=== PATIENT | male | born 1970 | race Hispanic/Latino ===

== ENCOUNTER 2016-09-29 13:00 | Emergency (ER) | payer SELFPAY ==
[~2016-09-29] VITALS: Ht 172.7 cm; Wt 83.4 kg
[~2016-09-29 13:00] MED LIST: 1/2 NS IV; ACETAMIN500 M1 PO; DILAUDID2 MG/ML IV; LORTAB 7.5 PO; NO; PIPER/TAZOBA1 IN1 IM; PROTONIX40 M1 IV; VIA IV; ZOFRAN IV; [UNRECOGNIZED DRUG - OTHER] IV
[2016-09-29] MEDS ORDERED: TAMSULOSIN0.4 MG PO (13:25)
[2016-09-29 13:50] LABS: HEMATOCRIT 48.2 % (39.0-50.0); HEMOGLOBIN 16.3 g/dl (14.0-18.0); IMMATURE GRANULOCYTES 2.3 % (0.0-1.0); MEAN CELL VOLUME 80.1 fL CALC (80.0-100.0); MEAN CORPUSCULAR HGB 27.1 pG CALC (26.0-32.0); MEAN CORPUSCULAR HGB CONC 33.8 g/L CALC (32.0-36.0); NEUT# 10.17 thou/uL (1.82-7.42); RED BLOOD COUNT 6.02 mill/uL (4.70-6.10); RED CELL DISTRI WIDTH 13.2 % (11.5-15.5)
[2016-09-29 14:07] LABS: ALBUMIN 4.9 g/dL (3.2-5.0); ALKALINE PHOSPHATASE 134 u/l (38-126); AMYLASE 47 u/l (30-110); ANION GAP 18 (6-22 (CALC)); BILIRUBIN, TOTAL 0.7 mg/dL (0.0-1.4); BUN 14 mg/dL (9-20); BUN/CREATININE RATIO 23 (12-20 (CALC)); CALCIUM 9.7 mg/dL (8.4-10.2); CARBON DIOXIDE 24 mmol/l (22-30); CHLORIDE 107 mmol/l (95-108); CREATININE 0.6 mg/dL (0.7-1.3); GFR > 60 ML/MIN (>=60 (CALC)); GFR FOR AFR.AMER. > 60 ML/MIN (>=60 (CALC)); GLUCOSE 164 mg/dL (75-110); LIPASE 87 u/l (23-300); POTASSIUM 4.2 mmol/l (3.5-5.1); SGOT/AST 38 u/l (17-59); SGPT/ALT 88 u/l (21-72); SODIUM 145 mmol/l (137-146)
[2016-09-29 15:24] LABS: URINE BILIRUBIN - DIPSTICK NEGATIVE (NEGATIVE); URINE BLOOD DIPSTICK NEGATIVE (NEGATIVE); URINE CLARITY CLEAR; URINE COLOR YELLOW; URINE GLUCOSE - DIPSTICK NEGATIVE (NEGATIVE); URINE KETONE NEGATIVE (NEGATIVE); URINE LEUK ESTERASE NEGATIVE (NEGATIVE); URINE NITRITE - DIPSTICK NEGATIVE (Negative); URINE PH 5.5 (4.5-8.0); URINE PROTEIN - DIPSTICK 100 mg/dL (NEG-TRACE); URINE SPECIFIC GRAVITY >=1.030; URINE UROBILINOGEN - DIPSTICK 0.2 E.U./dL (0.2)
[2016-09-29 15:34] LABS: URINE MUCUS FEW hpf (NONE-FEW); URINE SQUAMOUS EPITHELIAL CELL FEW EPI/hpf (0-FEW)
[2016-09-29] MEDS ORDERED: ANTIVERT PO (16:02)
[2016-09-29] MEDS ORDERED: MEDDOSEPAK PO (16:02)
[2016-09-29] MEDS ORDERED: ZOFRAN ODT4 MG PO (16:02)
[2016-09-29 16:19] VITALS: BP 125/76
== END 2016-09-29 16:30 | disposition home or self-care (01) | DRG 149 ==
LOC: ED 13:00
PROVIDERS: Emergency Medicine
DX: R42 Dizziness and giddiness (principal); H83.09 Labyrinthitis, unspecified ear